=== PATIENT | female | born 1980 | race Two or more races ===

== ENCOUNTER 2016-06-20 01:04 | Emergency (ER) | payer MEDICAID ==
[~2016-06-20] VITALS: Ht 154.9 cm; Wt 93.9 kg
[~2016-06-20 01:04] MED LIST: ACETAMINOP650 MG/20. ORAL; AMOXICILLIN500 MG ORAL; BACTRIM DS TAB1 EAC1 ORAL; CEPHALEXIN500 MG ORAL; GLUCOPHAGE500 MG ORAL; HYDROCODON-ACE1 EA15 ORAL; IBUPROFEN600 MG ORAL; IBUPROFEN800 MG ORAL; KEFLEX500 MG ORAL; LEVAQUIN750 MG ORAL; NKM; NORCO 5-325 TA1 EACH ORAL; PREDNISONE20 MG ORAL; TRAMADOL HCL50 MG ORAL; VIBRAMYCIN100 MG ORAL; ZOFRAN ODT4 MG ORAL
--- NOTE | 2016-06-20 01:42 | Emergency Room Report ---
History of Present Illness General Chief Complaint: Female Urogenital Problems Source: Patient Present Illness HPI Is a 35-year-old female with no past medical history. She present with chief complaint of dysuria and frequency. She also has burning along the outside of vaginal area and perineum. Onset for the last 3 days. No nausea no vomiting. No fever or chills. Similar symptoms in the past. Urination made it worse. Nothing made it better. Allergies: Coded Allergies: No Known Allergies (Unverified , 12/08/12) Patient History Past Medical History: none Past Surgical History: none Social History: Denies: smoking Last Menstrual Period: Mar Now: No Immunizations: other Reviewed Nursing Documentation: PMH: Agreed, PSxH: Agreed Nursing Documentation-PMH Hx Gastrointestinal Problems: No - Appendectomy, C/S 2 times Hx Cerebrovascular Accident: Yes - 2009 Review of Systems Eye: Denies: blurred vision, eye pain ENT: Denies: ear pain, nose congestion, throat swelling Respiratory: Denies: cough, shortness of breath Cardiovascular: Denies: chest pain, palpitations Gastrointestinal: Denies: abdominal pain, diarrhea, nausea, vomiting Genitourinary: Reports: dysuria Musculoskeletal: Denies: back pain, joint pain Skin: Denies: rash Neurological: Denies: headache, numbness Endocrine: Denies: increased thirst, increased urine Hematologic/Lymphatic: Denies: easy bruising All Other Systems: negative except mentioned in HPI Physical Exam Vital Signs Date Time Temp Pulse Resp B/P Pulse Ox O2 Delivery O2 Flow Rate FiO2 06/20/16 01:08 97.5 79 16 127/87 98 Room Air vitals normal Sp02 EP Interpretation: reviewed, normal General Appearance: obese Head: normocephalic, atraumatic Eyes: bilateral eye EOMI, bilateral eye PERRL ENT: hearing grossly normal, normal pharynx Neck: full range of motion, supple, no meningismus Respiratory: chest non-tender, lungs clear, normal breath sounds Cardiovascular #1: regular rate, rhythm, no murmur Gastrointestinal: normal bowel sounds, non tender, no mass, no organomegaly, no bruit, non-distended Genitourinary: other - Vaginal exam done with female nurse as third officer. She has skin breakage and laceration of the perineum and vaginal area. And also the inner thigh. No discharge. No herpetic lesion. Musculoskeletal: back normal, gait/station normal, normal range of motion Neurologic: alert, oriented x3 Psychiatric: mood/affect normal Skin: warm/dry Medical Decision Making Diagnostic Impression: Primary Impression: Diabetes type 2, uncontrolled Qualified Codes: E11.65 - Type 2 diabetes mellitus with hyperglycemia Additional Impression: Vaginitis and vulvovaginitis ER Course Patient presents with a local vaginitis secondary to eloy. Secondary to uncontrolled diabetes. This is new-onset. We'll discharge with prescription for metformin. No evidence of DKA. No evidence of UTI. We'll discharge home. Lab Results Impression labs showed hyperglycemia. Last Vital Signs Date Time Temp Pulse Resp B/P Pulse Ox O2 Delivery O2 Flow Rate FiO2 06/20/16 01:08 97.5 79 16 127/87 98 Room Air Status: improved Disposition: HOME, SELF-CARE Condition: Stable Scripts Metformin Hcl* (METFORMIN HCL*) 500 Mg Tablet 500 MG ORAL TWICE A DAY, #60 TAB Prov: LEO PEREIRA M.D. 06/20/16 Nystatin/Triamcinolone (Nystatin-Triamcinolone Ointm) 15 Gm Oint...g. 1 APPLIC TOPIC TID, #45 GM Prov: LEO PEREIRA M.D. 06/20/16 Patient Instructions: Vaginitis Additional Instructions: Followup with your DrTed in 7 days. Return for increasing pain, fever, chills or any concern. LEO PEREIRA M.D. Jun 20, 2016 01:42
[2016-06-20 01:51] LABS: APPEARANCE,URINE CLEAR; KETONES,URINE NEGATIVE (NEGATIVE); LEUKOCYTE ESTERASE ,URINE NEGATIVE (NEGATIVE); NITRITE,URINE NEGATIVE (NEGATIVE); PH,URINE 6.5 (4.5-8.0); PROTEIN,URINE NEGATIVE (NEGATIVE); UROBILINOGEN,URINE NORMAL MG/DL (0.0-1.0)
[2016-06-20 02:04] LABS: BACTERIA,URINE FEW /HPF; SQUAMOUS EPITHELIAL CELL,UR FEW /LPF (NONE/OCC); WBC,URINE 0-2 /HPF (0 - 2)
[2016-06-20 02:05] LABS: BASOPHILS % (AUTO) 0.5 % (0.0-2.0); EOSINOPHILS % (AUTO) 2.2 % (0.0-3.0); LYMPHOCYTES % (AUTO) 29.5 % (20.0-45.0); MEAN CORPUSCULAR HEMOGLOBIN 25.9 PG (27.0-31.0); MEAN CORPUSCULAR HGB CONC 31.5 G/DL (32.0-36.0); MEAN CORPUSCULAR VOLUME 82 FL (80-99); MONOCYTES % (AUTO) 7.6 % (1.0-10.0); NEUTROPHILS % (AUTO) 60.2 % (45.0-75.0); PLATELET COUNT 213 K/UL (150-450); RED BLOOD COUNT 5.62 M/UL (4.20-5.40); WHITE BLOOD COUNT 10.8 K/UL (4.8-10.8)
[2016-06-20 02:09] VITALS: BP 127/87
[2016-06-20 02:21] LABS: ANION GAP 14 (5-15); CALCIUM 9.3 mg/dL (8.6-10.2); CARBON DIOXIDE 25 mEQ/L (20-30); CHLORIDE 93 mEQ/L (98-107); CREATININE 0.6 mg/dL (0.5-0.9); GLOMERULAR FILTRATION RATE > 60 mL/min (>60); HEMOLYSIS 2; POTASSIUM 4.1 mEQ/L (3.4-4.9); SODIUM 132 mEQ/L (135-145)
[2016-06-20] MEDS ORDERED: MYCOLOG OINT1 APPLIC TOPIC (02:31)
[2016-06-20] MEDS ORDERED: METFORMIN HCL500 M1 ORAL (02:31)
[2016-06-20 02:45] VITALS: BP 127/87
== END 2016-06-20 02:45 | disposition home or self-care (01) ==
LOC: EMR 01:40
DX: N76.0 Acute vaginitis (principal); E11.65 Type 2 diabetes mellitus with hyperglycemia
CPT/HCPCS: 36415; 80048; 81003; 81025; 85025; 96372; 96374; 99284; J1815

== ENCOUNTER 2016-07-06 20:58 | Emergency (ER) | payer MEDICAID ==
[~2016-07-06] VITALS: Ht 167.6 cm; Wt 97.5 kg
[~2016-07-06 20:58] MED LIST changes: +METFORMIN HCL500 M1 ORAL; +MYCOLOG OINT1 APPLIC TOPIC
[2016-07-06 21:22] VITALS: BP 146/85
[2016-07-06] MEDS ORDERED: CLOTRIMAZOLE15 GM TOPIC (22:03)
[2016-07-06 22:25] VITALS: BP 146/85
--- NOTE | 2016-07-07 03:18 | Emergency Room Report ---
History of Present Illness General Chief Complaint: Pain Source: Patient Present Illness HPI 35YOF endorses bilateral groin rash, itch for ?2-3 days. Denies urinary discharge, polyuria, dysuria, abd pain, nausea/vomiting. Allergies: Coded Allergies: No Known Allergies (Unverified , 07/06/16) Patient History Past Medical History: none Past Surgical History: none Pertinent Family History: none Social History: Denies: alcohol use, drug use, smoking Last Menstrual Period: 06/30/16 Now: No Immunizations: UTD Reviewed Nursing Documentation: PMH: Agreed, PSxH: Agreed Nursing Documentation-PMH Past Medical History: No History, Except For Hx Diabetes: Yes Review of Systems All Other Systems: negative except mentioned in HPI Physical Exam Vital Signs Date Time Temp Pulse Resp B/P Pulse Ox O2 Delivery O2 Flow Rate FiO2 07/06/16 21:12 97.2 76 16 146/85 98 Room Air Sp02 EP Interpretation: reviewed, normal General Appearance: normal inspection, well appearing, no apparent distress, alert Head: atraumatic ENT: normal ENT inspection, hearing grossly normal, normal voice Neck: normal inspection Respiratory: normal inspection, lungs clear, normal breath sounds, no respiratory distress, no retraction, no wheezing Cardiovascular #1: regular rate, rhythm, no edema Gastrointestinal: normal inspection, normal bowel sounds, non tender, soft, no guarding, no hernia Genitourinary: other - Done with KINGS [place] present: bilateral groin folds with slightly elevated, sharply demarcated erythema with white patch Musculoskeletal: normal inspection, back normal, normal range of motion, Davina' s Sign negative Neurologic: normal inspection, alert, responsive, speech normal Psychiatric: normal inspection, judgement/insight normal, mood/affect normal Skin: normal inspection, normal color Lymphatic: normal inspection Medical Decision Making Diagnostic Impression: Primary Impression: Tinea cruris ER Course 35 YO F with likely tinea cruris of groin. VSS> Afebrile. No urinary complaints Rx clotrimazole topical F/up with PMD for no improvement as needed Last Vital Signs Date Time Temp Pulse Resp B/P Pulse Ox O2 Delivery O2 Flow Rate FiO2 07/06/16 22:25 97.2 76 16 146/85 98 Room Air Status: improved Disposition: HOME, SELF-CARE Condition: Improved Scripts Clotrimazole* (LOTRIMIN*) 15 Gm Cream..g. 1 APPLIC TOPIC TWICE A DAY for 14 Days, GM Prov: BONNY PATEL M.D. 07/06/16 Patient Instructions: Ivan Carrillo, [id number] BONNY PATEL M.D. Jul 07, 2016 03:18
== END 2016-07-06 22:25 | disposition home or self-care (01) ==
LOC: EMR 21:40 → MERGE 21:40 → EMR 22:25
DX: B35.6 Tinea cruris (principal); E11.9 Type 2 diabetes mellitus without complications
CPT/HCPCS: 99283

== ENCOUNTER 2016-07-30 13:24 | Emergency (ER) | payer MEDICAID ==
[~2016-07-30] VITALS: Ht 167.6 cm; Wt 102.1 kg
[~2016-07-30 13:24] MED LIST changes: +CLOTRIMAZOLE15 GM TOPIC
[2016-07-30] MEDS ORDERED: Lidocaine 1% 10mg/ml/EPI 0.01mg/ml 50ml INJ ONE (14:15)
[2016-07-30] MEDS ORDERED: TRAMADOL HCL50 MG ORAL (14:20)
[2016-07-30] MEDS ORDERED: KEFLEX500 MG ORAL (14:20)
[2016-07-30] MEDS ORDERED: BACTRIM DS TAB1 EAC1 ORAL (14:20)
[2016-07-30] MEDS ORDERED: Lidocaine 2% 20mg/ml/Epi 0.005mg/ml 20ml vial ONE (14:22)
[2016-07-30 14:30] VITALS: BP 107/72
--- NOTE | 2016-07-30 14:40 | Emergency Room Report ---
History of Present Illness General Chief Complaint: Skin Rash/Abscess Source: Patient Present Illness HPI Patient is a 35-year-old female presented after increased pain to her right lower crural area. Patient gradual onset of symptoms over the past 3 days. Patient denied any fever. This reports a prior history of diabetes. She's not taking any medications for diabetes other than metformin. Patient was noted to have prior medication for antibiotics for Flagyl. Patient had noticed a gradually increased swelling. She had a similar lesion to the left side of her vulvar area which is spontaneously ruptured. Allergies: Coded Allergies: No Known Allergies (Unverified , 12/08/12) Patient History Last Menstrual Period: 07/12/16 Now: No Reviewed Nursing Documentation: PMH: Agreed, PSxH: Agreed Nursing Documentation-PMH Past Medical History: No History, Except For Hx Diabetes: Yes Hx Gastrointestinal Problems: No - Appendectomy, C/S 2 times Hx Cerebrovascular Accident: Yes - 2009 Review of Systems All Other Systems: negative except mentioned in HPI Physical Exam Vital Signs Date Time Temp Pulse Resp B/P Pulse Ox O2 Delivery O2 Flow Rate FiO2 07/30/16 13:42 98.2 68 18 107/72 100 Room Air Sp02 EP Interpretation: reviewed, normal General Appearance: normal inspection, well appearing, no apparent distress, alert, GCS 15 Head: atraumatic ENT: normal ENT inspection, hearing grossly normal, normal voice Neck: normal inspection, full range of motion, supple, no bony tend Respiratory: normal inspection, lungs clear, normal breath sounds, no respiratory distress, no retraction, no wheezing Cardiovascular #1: regular rate, rhythm, no edema Gastrointestinal: normal inspection, normal bowel sounds, non tender, soft, no guarding, no hernia Genitourinary: no CVA tenderness Musculoskeletal: normal inspection, back normal, normal range of motion Neurologic: normal inspection, alert, responsive, speech normal Psychiatric: normal inspection, judgement/insight normal, mood/affect normal Skin: other - small fluctuance area to right side of mons surrounding hair follicle Procedures Incision and Drainage Incision and Drainage : Consent: Verbal Blade Size: 11 I & D Procedure: betadine prep, sterile drapes applied, sterile dressing applied Wound Location: pelvis Wound's Depth, Shape: superficial Wound Length (cm): 0 Wound Explored: clean Anesthesia: Lidocaine w/ Epi Patient Tolerated: Well Complications: None Medical Decision Making Diagnostic Impression: Primary Impression: Folliculitis ER Course Patient presented for skin rash. Differential diagnosis included was not limited to abscess, cellulitis, folliculitis, necrotizing fascitis. The patient 's lesion was incised and drained with a small amount purulent material. The patient's wound was irrigated.The patient is advised to follow up with primary care doctor in 2-3 days. Patient is advised to return if any worsening condition or if any changes in status that are concerning. Last Vital Signs Date Time Temp Pulse Resp B/P Pulse Ox O2 Delivery O2 Flow Rate FiO2 07/30/16 13:42 98.2 68 18 107/72 100 Room Air Status: improved Disposition: HOME, SELF-CARE Condition: Stable Scripts Tramadol Hcl* (ULTRAM*) 50 Mg Tablet 50 MG ORAL Q6H Y for For Pain, #10 TAB 0 Refills Prov: Ricki Santos 07/30/16 Cephalexin* (KEFLEX*) 500 Mg Capsule 500 MG ORAL Q6H, #28 CAP 0 Refills Prov: Ricki Santos 07/30/16 Trimethoprim/Sulfamethoxazole 160/800* (BACTRIM DS TABLET*) 1 Each Tablet 1 TAB ORAL Q12H, #14 TAB 0 Refills Prov: Ricki Santos 07/30/16 Referrals: NOT CHOSEN [facility]/,REFERRING (PCP) Patient Instructions: Folliculitis Ricki Santos Jul 30, 2016 14:40
[2016-07-30] MEDS ORDERED: Norco 5mg/325mg tab ORAL ONE (14:45)
[2016-07-30] MEDS: Bactrim DS (160mg/800mg) tab ORAL ONE ×2 (14:51→15:45)
[2016-07-30] MEDS ORDERED: Lidocaine 2% 20mg/ml/Epi 0.005mg/ml 20ml vial INJ ONE (15:30)
[2016-07-30 15:50] VITALS: BP 107/72
== END 2016-07-30 15:50 | disposition home or self-care (01) ==
LOC: EMR 14:05
DX: L73.9 Follicular disorder, unspecified (principal); E11.9 Type 2 diabetes mellitus without complications; Z90.49 Acquired absence of other specified parts of digestive tract; Z86.73 Personal history of transient ischemic attack (TIA), and cerebral infarction without residual deficits
CPT/HCPCS: 10060; 81025

== ENCOUNTER 2016-10-04 07:42 | Emergency (ER) | payer MEDICAID ==
[~2016-10-04] VITALS: Ht 165.1 cm; Wt 114.3 kg
[2016-10-04 08:00] VITALS: BP 120/80
[2016-10-04] MEDS ORDERED: DiphenhydrAMINE 50mg/ml Inj IVP ONE (08:15)
[2016-10-04] MEDS ORDERED: Morphine Sulfate 4mg/ml Inj IVP ONE (08:15)
[2016-10-04] MEDS ORDERED: Metoclopramide 10mg/2ml Inj IVP ONE (08:15)
[2016-10-04 08:31] LABS: BASOPHILS % (AUTO) 0.5 % (0.0-2.0); EOSINOPHILS % (AUTO) 3.1 % (0.0-3.0); LYMPHOCYTES % (AUTO) 32.9 % (20.0-45.0); MEAN CORPUSCULAR HEMOGLOBIN 26.8 PG (27.0-31.0); MEAN CORPUSCULAR HGB CONC 31.8 G/DL (32.0-36.0); MEAN CORPUSCULAR VOLUME 84 FL (80-99); NEUTROPHILS % (AUTO) 48.5 % (45.0-75.0); PLATELET COUNT 180 K/UL (150-450); RED BLOOD COUNT 5.47 M/UL (4.20-5.40); RED CELL DISTRIBUTION WIDTH 13.8 % (11.6-14.8); WHITE BLOOD COUNT 5.1 K/UL (4.8-10.8)
[2016-10-04 08:35] LABS: APPEARANCE,URINE SLIGHTLY CLOUDY; KETONES,URINE 1+ (NEGATIVE); LEUKOCYTE ESTERASE ,URINE NEGATIVE (NEGATIVE); NITRITE,URINE NEGATIVE (NEGATIVE); PH,URINE 6 (4.5-8.0); PROTEIN,URINE NEGATIVE (NEGATIVE); UROBILINOGEN,URINE NORMAL MG/DL (0.0-1.0)
[2016-10-04 08:51] LABS: BACTERIA,URINE FEW /HPF; SQUAMOUS EPITHELIAL CELL,UR MANY /LPF (NONE/OCC)
[2016-10-04 09:05] LABS: ALANINE AMINOTRANSFERASE 54 U/L (3-33); ALBUMIN/GLOBULIN RATIO 1.1 (1.0-2.7); ANION GAP 15 (5-15); ASPARTATE AMINO TRANSFERASE 28 U/L (5-40); CALCIUM 8.8 mg/dL (8.6-10.2); CARBON DIOXIDE 23 mEQ/L (20-30); CHLORIDE 95 mEQ/L (98-107); CREATININE 0.7 mg/dL (0.5-0.9); GLOMERULAR FILTRATION RATE > 60 mL/min (>60); HEMOLYSIS 5; LIPASE 41 U/L (< 60); POTASSIUM 4.2 mEQ/L (3.4-4.9); SODIUM 133 mEQ/L (135-145); TOTAL PROTEIN 6.8 g/dL (6.6-8.7)
[2016-10-04] MEDS ORDERED: MAGNESIUM CITR296 M1 PO ×2 (10:12→10:15)
[2016-10-04] MEDS ORDERED: COLACE100 MG ORAL (10:12)
[2016-10-04 10:19] VITALS: BP 122/72
--- NOTE | 2016-10-04 10:34 | Emergency Room Report ---
History of Present Illness General Chief Complaint: Abdominal Pain Source: Patient, Family Member Present Illness HPI 35-year-old female presents ED complaining of abdominal pain and vomiting x1 day. Pain is lower, sharp, 8 out 10, nonradiating. Notes multiple episodes of vomiting. Notes associated headache. Denies fevers chills. Denies chest pain or shortness of breath. Denies diarrhea. Denies any contacts or recent travel. No other aggravating or relieving factors. Denies any other associated symptoms Allergies: Coded Allergies: No Known Allergies (Unverified , 12/08/12) Patient History Past Medical History: DM, CVA/TIA Pertinent Family History: none Social History: Denies: alcohol use, drug use, smoking Now: No Immunizations: UTD Reviewed Nursing Documentation: PMH: Agreed, PSxH: Agreed Nursing Documentation-PMH Hx Diabetes: Yes Hx Gastrointestinal Problems: No - Appendectomy, C/S 2 times Hx Cerebrovascular Accident: Yes - 2009 Review of Systems All Other Systems: negative except mentioned in HPI Physical Exam Vital Signs Date Time Temp Pulse Resp B/P Pulse Ox O2 Delivery O2 Flow Rate FiO2 10/04/16 07:48 97.3 88 20 107/66 99 Room Air Sp02 EP Interpretation: reviewed, normal General Appearance: no apparent distress, alert, GCS 15, non-toxic, obese Head: normocephalic ENT: normal ENT inspection Neck: normal inspection Respiratory: chest non-tender, lungs clear, normal breath sounds, speaking full sentences Cardiovascular #1: regular rate, rhythm, no edema Gastrointestinal: normal bowel sounds, soft, non-distended, no guarding, no rebound, tenderness - RLQ Rectal: deferred Genitourinary: no CVA tenderness Musculoskeletal: normal inspection Neurologic: alert, oriented x3, responsive, motor strength/tone normal, sensory intact, speech normal Psychiatric: normal inspection Skin: normal inspection Lymphatic: normal inspection Medical Decision Making Diagnostic Impression: Primary Impression: Constipation Qualified Codes: K59.00 - Constipation, unspecified ER Course Hospital Course 35-year-old F presents to ED with abdominal pain, headache and vomiting Differential diagnosis includes-appendicitis, cholecystitis, small bowel obstruction, gastritis, Clinical course Patient placed on stretcher. After initial history and physical I ordered labs , IV fluids, pain medications and CT Labs - no leukocytosis, electrolytes ok, LFTs normal, UA unremarkable CT - fecal impaction in RLQ discussed finding with patient. reassurance given. I feel this is a highly complex case requiring extensive working including EKG/ Rhythm strip, Xray/CT/US, Blood/urine lab work, repeat exams while in ED, and administration of strong opiates/narcotics for pain control, admission to hospital or close patient follow up. Diagnosis - constipation Stable and discharged to home with Rx Mag citrate, Colace. instructed on high- fiber diet. Followup with PMD. Return to ED if symptoms recur or worsen Labs Test 10/04/16 08:05 White Blood Count 5.1 K/UL (4.8-10.8) Red Blood Count 5.47 M/UL (4.20-5.40) Hemoglobin 14.7 G/DL (12.0-16.0) Hematocrit 46.2 % (37.0-47.0) Mean Corpuscular Volume 84 FL (80-99) Mean Corpuscular Hemoglobin 26.8 PG (27.0-31.0) Mean Corpuscular Hemoglobin Concent 31.8 G/DL (32.0-36.0) Red Cell Distribution Width 13.8 % (11.6-14.8) Platelet Count 180 K/UL (150-450) Mean Platelet Volume 9.0 FL (6.5-10.1) Neutrophils (%) (Auto) 48.5 % (45.0-75.0) Lymphocytes (%) (Auto) 32.9 % (20.0-45.0) Monocytes (%) (Auto) 15.0 % (1.0-10.0) Eosinophils (%) (Auto) 3.1 % (0.0-3.0) Basophils (%) (Auto) 0.5 % (0.0-2.0) Urine Color Pale yellow Urine Appearance Slightly cloudy Urine pH 6 (4.5-8.0) Urine Specific [place] 1.020 (1.005-1.035) Urine Protein Negative (NEGATIVE) Urine Glucose (UA) 4+ (NEGATIVE) Urine Ketones 1+ (NEGATIVE) Urine Occult Blood 1+ (NEGATIVE) Urine Nitrite Negative (NEGATIVE) Urine Bilirubin Negative (NEGATIVE) Urine Urobilinogen Normal MG/DL (0.0-1.0) Urine Leukocyte Esterase Negative (NEGATIVE) Urine RBC 2-4 /HPF (0 - 2) Urine WBC 2-4 /HPF (0 - 2) Urine Squamous Epithelial Cells Many /LPF (NONE/OCC) Urine Bacteria Few /HPF (NONE) Urine HCG, Qualitative Negative Sodium Level 133 mEQ/L (135-145) Potassium Level 4.2 mEQ/L (3.4-4.9) Chloride Level 95 mEQ/L (98-107) Carbon Dioxide Level 23 mEQ/L (20-30) Anion Gap 15 (5-15) Blood Urea Nitrogen 11 mg/dL (7-23) Creatinine 0.7 mg/dL (0.5-0.9) Estimat Glomerular Filtration Rate > 60 mL/min (>60) Glucose Level 337 mg/dL (74-106) Calcium Level 8.8 mg/dL (8.6-10.2) Total Bilirubin 0.3 mg/dL (0.0-1.2) Aspartate Amino Transf (AST/SGOT) 28 U/L (5-40) Alanine Aminotransferase (ALT/SGPT) 54 U/L (3-33) Alkaline Phosphatase 101 U/L (35-104) Total Protein 6.8 g/dL (6.6-8.7) Albumin 3.7 g/dL (3.5-5.2) Globulin 3.1 g/dL Albumin/Globulin Ratio 1.1 (1.0-2.7) Lipase 41 U/L (< 60) CT/MRI/US Diagnostic Results CT/MRI/US Diagnostic Results : Imaging Test Ordered: CT A/P Impression no signs of appendicitis. impacted fecal matter in RLQ Last Vital Signs Date Time Temp Pulse Resp B/P Pulse Ox O2 Delivery O2 Flow Rate FiO2 10/04/16 10:19 72 17 122/72 95 Room Air 10/04/16 08:00 98.0 Status: improved Disposition: HOME, SELF-CARE Condition: Stable Scripts Magnesium Citrate (MAGNESIUM CITRATE) 296 Ml Solution 150 ML PO DAILY for 2 Days, UNIT Prov: ÁNGELA PANTOJA M.D. 10/04/16 Docusate Sodium* (COLACE*) 100 Mg Capsule 100 MG ORAL THREE TIMES A DAY, #30 CAP Prov: ÁNGELA PANTOJA M.D. 10/04/16 Patient Instructions: Constipation, Adult, [id number] ÁNGELA PANTOJA M.D. October 04, 2016 10:34
--- NOTE | 2016-10-04 12:24 | Diagnostic Imaging Report ---
Indication: Abdominal pain Technique: Continuous helical transaxial imaging of the abdomen and pelvis was obtained from the lung bases to the pubic symphysis during intravenous contrast administration. Coronal 2-D reformats were also obtained. Study obtained in a Siemens sensation [address] Total Dose length Product (DLP): [address] Dose Index Volume (CTDIvol): 19 mGy Comparison: None Findings: Patchy interstitial opacities are demonstrated at the right lung base. There is no free fluid or free air. No hydronephrosis seen. Liver, spleen, pancreas, gallbladder appear unremarkable. Accessory spleen noted. Moderate stool retention in the colon demonstrated. The appendix is not visualized but there are no secondary signs of appendicitis. Fecalized and mildly distended terminal ileum loops noted indicative of stasis and ileocolic reflux/incompetent ileocecal valve. Intrauterine device noted. Both ovaries are seen. Impression: Moderate fecal retention with stasis in distal small bowel. Intrauterine device Patchy small airway/interstitial opacities at the lung bases. Consider atypical pneumonitis or pneumonia. Please correlate clinically. The CT scanner at [facility] is accredited by the [employer] and the scans are performed using protocols designed to limit radiation exposure to as low as reasonably achievable to attain images of sufficient resolution adequate for diagnostic evaluation.
== END 2016-10-04 10:21 | disposition home or self-care (01) ==
LOC: EMR 08:51
DX: K59.00 Constipation, unspecified (principal); E11.9 Type 2 diabetes mellitus without complications; Z86.73 Personal history of transient ischemic attack (TIA), and cerebral infarction without residual deficits
CPT/HCPCS: 36415; 74177; 80053; 81003; 81025; 83690; 85025; 96360; 96374; 96375; 99284; J1200; J2270; J2765; Q9967

== ENCOUNTER 2017-08-25 22:58 | Emergency (ER) | payer MEDICAID ==
[~2017-08-25] VITALS: Ht 165.1 cm; Wt 90.7 kg
[~2017-08-25 22:58] MED LIST changes: +COLACE100 MG ORAL; +MAGNESIUM CITR296 M1 PO
[2017-08-25 23:14] VITALS: BP 136/121
--- NOTE | 2017-08-25 23:20 | Emergency Room Report ---
History of Present Illness General Chief Complaint: General Complaint Source: Patient Present Illness HPI Is a 36-year-old female with a history of high blood pressure and diabetes. She presents with chief complaint of chest pressure and nausea and vomiting. Onset tonight. Woke her up. She said she had several episodes of vomiting and noticed some blood in it. Now felt short of breath. In triage she was very tachypneic and felt dizzy like she pass out. No longer having chest pain. Denies any alcohol drugs. Denies any diarrhea. Does admit to increased stress. Allergies: Coded Allergies: No Known Allergies (Unverified , 12/08/12) Patient History Past Medical History: see triage record, old chart reviewed, DM, HTN Past Surgical History: other Pertinent Family History: none Social History: Denies: smoking Last Menstrual Period: 08/17/2017 Now: No : 4 Para: 4 Immunizations: other Reviewed Nursing Documentation: PMH: Agreed; PSxH: Agreed Nursing Documentation-PMH Hx Hypertension: Yes Hx Diabetes: Yes - Type 2 Hx Gastrointestinal Problems: No - Appendectomy, C/S 2 times Hx Cerebrovascular Accident: Yes - 2009 Review of Systems Eye: Denies: eye pain, blurred vision ENT: Denies: ear pain, nose congestion, throat swelling Respiratory: Reports: shortness of breath; Denies: cough Cardiovascular: Reports: chest pain; Denies: palpitations Gastrointestinal: Denies: abdominal pain, diarrhea, nausea, vomiting Musculoskeletal: Denies: back pain, joint pain Skin: Denies: rash Neurological: Denies: headache, numbness Endocrine: Denies: increased thirst, increased urine Hematologic/Lymphatic: Denies: easy bruising All Other Systems: negative except mentioned in HPI Physical Exam Vital Signs Date Time Temp Pulse Resp B/P (MAP) Pulse Ox O2 Delivery O2 Flow Rate FiO2 08/25/17 23:04 74 28 136/121 96 Room Air 08/25/17 23:14 98.1 98.1 vitals unremarkable. The blood pressure normal Sp02 EP Interpretation: reviewed, normal General Appearance: well appearing, no apparent distress, alert Head: normocephalic, atraumatic Eyes: bilateral eye PERRL, bilateral eye EOMI ENT: hearing grossly normal, normal pharynx Neck: full range of motion, supple, no meningismus Respiratory: chest non-tender, lungs clear, normal breath sounds Cardiovascular #1: regular rate, rhythm, no murmur Gastrointestinal: normal bowel sounds, non tender, no mass, no organomegaly, no bruit, non-distended Musculoskeletal: back normal, gait/station normal, normal range of motion Psychiatric: anxious Skin: warm/dry Medical Decision Making Diagnostic Impression: Primary Impression: Panic attack Additional Impression: Hyperglycemia due to type 2 diabetes mellitus Qualified Codes: E11.65 - Type 2 diabetes mellitus with hyperglycemia ER Course Patient with symptoms consistent with panic attack. Better after Ativan. No evidence of ACS, PE, dissection to name a few. She is not currently on any medication for diabetes. We'll put her on metformin. EKG Diagnostic Results Rate: normal Rhythm: NSR ST Segments: no acute changes Rhythm Strip Diag. Results Rhythm Strip Time: 23:20 EP Interpretation: yes Rate: 70 Rhythm: NSR, no PVC's, no ectopy Last Vital Signs Date Time Temp Pulse Resp B/P (MAP) Pulse Ox O2 Delivery O2 Flow Rate FiO2 08/25/17 23:14 98.1 72 28 136/121 100 Room Air 98.1 Status: improved Disposition: HOME, SELF-CARE Condition: Stable Scripts Metformin Hcl* (METFORMIN HCL*) 500 Mg Tablet 500 MG ORAL TWICE A DAY, #60 TAB Prov: LEO PEREIRA M.D. 08/26/17 Lorazepam* (ATIVAN*) 1 Mg Tablet 1 MG ORAL THREE TIMES A DAY, #21 TAB Prov: LEO PEREIRA M.D. 08/26/17 Additional Instructions: Follow-up your DrTed in 7 days. Take your diabetes medication. Return if symptom worsen. LEO PEREIRA M.D. Aug 25, 2017 23:20
[2017-08-25] MEDS ORDERED: LORazepam Inj 2mg/ml 1ml IV ONE (23:30)
[2017-08-25 23:47] LABS: BASOPHILS % (AUTO) 0.7 % (0.0-2.0); EOSINOPHILS % (AUTO) 0.2 % (0.0-3.0); HEMATOCRIT 44.9 % (37.0-47.0); HEMOGLOBIN 14.9 G/DL (12.0-16.0); LYMPHOCYTES % (AUTO) 22.3 % (20.0-45.0); MEAN CORPUSCULAR VOLUME 82 FL (80-99); MONOCYTES % (AUTO) 4.8 % (1.0-10.0); PLATELET COUNT 264 K/UL (150-450); RED BLOOD COUNT 5.48 M/UL (4.20-5.40); RED CELL DISTRIBUTION WIDTH 12.2 % (11.6-14.8); WHITE BLOOD COUNT 6.3 K/UL (4.8-10.8)
[2017-08-25 23:59] LABS: ANION GAP 12 mmol/L (5-15); BLOOD UREA NITROGEN 11 mg/dL (7-18); CALCIUM 9.6 MG/DL (8.5-10.1); CARBON DIOXIDE 25 MMOL/L (21-32); CHLORIDE 100 MMOL/L (98-107); CREATININE 0.8 MG/DL (0.55-1.30); POTASSIUM 3.9 MMOL/L (3.5-5.1); SODIUM 137 MMOL/L (136-145)
[2017-08-26 00:13] LABS: ALANINE AMINOTRANSFERASE 26 U/L (12-78); ALBUMIN 4.3 G/DL (3.4-5.0); ALKALINE PHOSPHATASE 98 U/L (46-116); ASPARTATE AMINO TRANSFERASE 13 U/L (15-37); BILIRUBIN,TOTAL 0.6 MG/DL (0.2-1.0); CKMB 0.5 NG/ML (0.0-3.6); CREATINE KINASE 43 U/L (26-308)
[2017-08-26] MEDS ORDERED: ATIVAN1 MG ORAL (00:34)
[2017-08-26] MEDS ORDERED: METFORMIN HCL500 M1 ORAL (00:34)
[2017-08-26 00:45] VITALS: BP 136/121
--- NOTE | 2017-08-26 17:13 | Diagnostic Imaging Report ---
. Indication: Chest pain Technique: XRAY Chest 1v Comparison: None. Findings: The patient has taken a poor inspiration. The cardiomediastinal silhouette is normal. The lungs are clear. There is no evidence of pleural fluid. The bony structures are unremarkable. Impression: Poor inspiratory chest. Otherwise grossly negative.
== END 2017-08-26 00:46 | disposition home or self-care (01) ==
LOC: EMR 23:25
DX: F41.0 Panic disorder [episodic paroxysmal anxiety] (principal); E11.65 Type 2 diabetes mellitus with hyperglycemia; I10 Essential (primary) hypertension; Z86.73 Personal history of transient ischemic attack (TIA), and cerebral infarction without residual deficits
CPT/HCPCS: 36415; 71045; 80053; 82550; 82553; 82962; 84484; 85025; 93005; 99284; J2405

== ENCOUNTER 2020-02-09 16:07 | Emergency (ER) | payer MEDICAID ==
[~2020-02-09] VITALS: Ht 157.5 cm; Wt 111.1 kg
[~2020-02-09 16:07] MED LIST changes: +ATIVAN1 MG ORAL
--- NOTE | 2020-02-09 16:32 | NUR ---
ED Nurse Note: pt presents to ED c/o R lower back pain that radiates into R leg x 1 week after she slipped and fell. pt able to ambulate with steady gait, no head trauma, skin is warm dry and intact
[2020-02-09 16:34] VITALS: BP 102/69
[2020-02-09] MEDS ORDERED: HYDROcodone/Acetamin 5/325 tab ORAL ONE (16:45)
--- NOTE | 2020-02-09 17:18 | Diagnostic Imaging Report ---
Indication: Knee pain Technique: XRAY Knee 3v R Comparison: None Findings: Bone mineralization within normal limits. No acute fracture or dislocation is identified. Small quadriceps tendon enthesophyte noted. No suprapatellar joint effusion. There are mild degenerative changes with some small marginal osteophytes and mild narrowing of the medial compartment joint space. Impression: No acute fracture or dislocation.
--- NOTE | 2020-02-09 17:37 | Emergency Room Report ---
History of Present Illness General Chief Complaint: Multiple Trauma/Fall Source: Patient Present Illness HPI 39 YO female presents to the ED c/o 12/04 in severity Right knee pain and swelling with radiation up towards the right hip. S/p fall down one stair last week. Pt. reports twisting her right knee. She denies midline neck or back pain. She denies falling completely to the Ground. She denies abdominal pain. She denies erythema, warmth or inability to bear weight. Pt. reports pain is exacerbated upon walking/ bearing weight. Pt. denies paresthesias. She states she has not taken any medications for her symptoms. Hx of DM, CVA without residual, and appendectomy. She denies or suspicion of . Allergies: Coded Allergies: No Known Allergies (Unverified , 12/08/12) COVID-19 Screening Contact w/high risk pt: No Experienced COVID-19 symptoms?: No COVID-19 Testing performed DIRECTOR OF CARDIAC CATH LAB: No Patient History Past Medical History: see triage record Past Surgical History: none Pertinent Family History: none Last Menstrual Period: na Now: No Reviewed Nursing Documentation: PMH: Agreed; PSxH: Agreed Nursing Documentation-PMH Past Medical History: No History, Except For Hx Hypertension: Yes Hx Diabetes: Yes - Type 2 Hx Gastrointestinal Problems: No - Appendectomy, C/S 2 times Hx Cerebrovascular Accident: Yes - 2009 Review of Systems All Other Systems: negative except mentioned in HPI Physical Exam Vital Signs Date Time Temp Pulse Resp B/P (MAP) Pulse Ox O2 Delivery O2 Flow Rate FiO2 02/09/20 16:27 98.1 79 16 102/69 (80) 98 Room Air Sp02 EP Interpretation: reviewed, normal General Appearance: no apparent distress, alert, GCS 15, non-toxic Head: normocephalic, atraumatic Eyes: bilateral eye normal inspection, bilateral eye PERRL ENT: hearing grossly normal, normal voice Neck: full range of motion Respiratory: chest non-tender, lungs clear, normal breath sounds, speaking full sentences Cardiovascular #1: regular rate, rhythm, normal capillary refill Genitourinary: normal inspection, no CVA tenderness Musculoskeletal: back normal, normal range of motion, gait/station normal, tender - TTP to the proximal anterior right knee, able to fully extend and flex. No increased laxity upon varus or valgus stressing, negative anterior and posterior drawer signs Neurologic: alert, motor strength/tone normal, oriented x3, sensory intact, responsive, speech normal Psychiatric: judgement/insight normal Skin: normal color Medical Decision Making PA Attestation Dr. Santos is my supervising Physician whom patient management has been discussed with. Diagnostic Impression: Primary Impression: Knee pain, right Qualified Codes: M25.561 - Pain in right knee Additional Impression: Right knee sprain Qualified Codes: S83.91XA - Sprain of unspecified site of right knee, initial encounter ER Course 39 YO female presents to the ED c/o 12/04 in severity Right knee pain and swelling with radiation up towards the right hip. S/p fall down one stair last week. Pt. reports twisting her right knee. She denies midline neck or back pain. She denies falling completely to the Ground. She denies abdominal pain. She denies erythema, warmth or inability to bear weight. Pt. reports pain is exacerbated upon walking/ bearing weight. Pt. denies paresthesias. She states she has not taken any medications for her symptoms. Hx of DM, CVA without residual, and appendectomy. She denies or suspicion of . Ddx considered but are not limited to Fracture, dislocation, contusion, epidural abscess, Sprain/Strain/Spasm, sciatica Septic joint just to name a few. Vital signs: are WNL, pt. is afebrile H&PE are most consistent with knee strain - no significant /obvious instability of the joint. No evidence of infection. Pt. is ambulatory without assistance. ORDERS: X-ray Right knee complete 3 view - negative for fx, Dislocation, or significant soft tissue injury ED INTERVENTIONS: - [place] PO --Knee Immobilizer splint applied to the Right Knee by RN. Pt. remains neurovascularly intact. --Patient is provided with crutches and instructed on their use DISCHARGE: At this time pt. is stable for d/c to home. Will provide printed patient care instructions, and any necessary prescriptions. Care plan and follow up instructions have been discussed with the patient prior to discharge. Other X-Ray Diagnostic Results Other X-Ray Diagnostic Results : X-Ray ordered: Right Knee # of Views/Limited Vs Complete: 3 View Indication: Pain EP Interpretation: Yes ISAI Xray: Interpretation reviewed, by supervising MD, and agrees with findings. Interpretation: no dislocation, no soft tissue swelling, no fractures Impression: No acute disease Electronically Signed by: Darshana Walker PA-C Last Vital Signs Date Time Temp Pulse Resp B/P (MAP) Pulse Ox O2 Delivery O2 Flow Rate FiO2 02/09/20 16:34 79 16 Room Air 02/09/20 16:34 98.1 102/69 98 Disposition: HOME, SELF-CARE Condition: Stable Referrals: NOT CHOSEN IPA/MD,REFERRING (PCP) Orthopedic Urgent Care Patient Instructions: Knee Sprain Additional Instructions: Take medications as directed. Do not drink alcohol, drive, or operate heavy machinery while taking Tramadol as this may cause drowsiness. Follow up with an [facility] in 3-5 days, even if your symptoms have resolved. If symptoms persist MRI may be required at the discretion of your PCP or Ortho Specialist. --Please review list of primary care clinics, if you do not already have a primary care provider who can give you an Orthopedic Referral. Return sooner to ED if new symptoms occur, or current symptoms become worse. - Please note that this Emergency Department Report was dictated using x.aisheet rock applicator technology software, occasionally this can lead to erroneous entry secondary to interpretation by the dictation equipment. Darshana Walker Feb 09, 2020 17:36
--- NOTE | 2020-02-09 17:39 | NUR ---
ED Nurse Note: right knee immobilizer applied.
[2020-02-09] MEDS ORDERED: TRAMADOL HCL50 MG ORAL (17:47)
[2020-02-09] MEDS ORDERED: TYLENOL EXTRA500 MG ORAL (17:47)
[2020-02-09 17:59] VITALS: BP 110/70
--- NOTE | 2020-02-09 17:59 | NUR ---
ER DISCHARGE NOTE: Patient is cleared to be discharged per ERMD, pt is aox4, on room air, with stable vital signs. pt was given dc and prescription instructions, pt was able to verbalize understanding, pt id band removed without complications. pt is able to ambulate with steady gait. pt took all belongings.
== END 2020-02-09 17:59 | disposition home or self-care (01) ==
LOC: EMR 16:30
DX: S83.91XA Sprain of unspecified site of right knee, initial encounter (principal); W10.9XXA Fall (on) (from) unspecified stairs and steps, initial encounter; Y92.9 Unspecified place or not applicable; Z90.89 Acquired absence of other organs; E11.9 Type 2 diabetes mellitus without complications; I10 Essential (primary) hypertension
CPT/HCPCS: 73562; Z7502; 99283